=== PATIENT | male | born 1970 | race Caucasian/White ===

== ENCOUNTER 2016-11-01 16:42 | Emergency (ER) | payer MEDICAID ==
--- NOTE | 2016-11-01 17:40 | EDPHY ---
Mental Health General Previous Psychiatric History: schizophrenia, substance abuse Smoking Status: Current every day smoker Time Patient Placed on M1 Hold: 15:00 Course: patient remained stable over course of my shift, patient required additional meds for sedation (meds) Narrative: CHIEF COMPLAINT: M1 hold, suicidal ideations HISTORY OF PRESENT ILLNESS: 45-year-old male presents to the emergency department on an M1 hold for suicidal ideations. Patient reports he is schizophrenic and has been off of his medications for 3 weeks. He reports auditory hallucinations telling him to kill, kill, kill. Patient reports using crystal meth 2-3 days ago, and marijuana. Patient is homeless, his psychiatrist is in [place]. He reports drinking alcohol today. REVIEW OF SYSTEMS: A comprehensive 10 point review of systems is otherwise negative aside from elements mentioned in the history of present illness. Physical Exam Gen: Alert and Oriented, NAD HEENT: PERRL, moist mucous membranes NECK: no meningismus CV: regular rate and regular rhythm PULM: CTAB, no wheezes ABDOMEN: soft, non tender to palpation, BS present BACK: No CVA tenderness NEURO: Neurologically grossly intact EXTREMITIES: normal appearing SKIN: no rash or break in skin on exposed skin PSYCH: Reports suicidal ideations and auditory hallucinations (Suad Devine) I assumed care of this patient from Dr. Styles at 7:00 a.m.. At 2:30 p.m. the patient is undergoing mental health evaluation. He did require Ativan during my shift, for anxiety and agitation and signs of alcohol withdrawal. He has not had any new complaints that he expressed to me. He was slightly tachycardic at the time my exam with a heart rate of around 105. Lungs were clear to auscultation. Abdomen was soft. He was mildly tremulous His care will be transferred to the incoming doctor, Dr. Rex Vela, at change of shift , at 3:00 p.m. on November 02, 2016. Disposition following mental health evaluation. (Sophie Vaughan) Care assumed by me pending evaluation. [address] Vaughan pending evaluation. No issues during my care. 23:30 Care re-assumed by me pendign palcement. [address] Leary pending placement. (Owen Styles) Care assumed at 700 with placement pending. Plan for inpatient placement for schizophrenia and suicidal and homicidal ideation. Signed out to Dr. Brenda Bocanegra at 3:00 p.m. (Yang Leary) Medical Decision Makin-year-old male presents to the emergency department with suicidal ideations. Patient has a blood alcohol level of 196 and a urine tox is positive for methamphetamines. Patient will not be evaluated by EPS for 12 hours after this positive U tox which will be at 4:45 a.m. 0000-report passed on to Dr. Styles at the end of my shift pending sober re- evaluation. (Suad Devine) Patient remained stable on my shift. He is on an M1 hold and mental health as looking for placement Care to Dr. Styles at midnight (Rex Vela) 3pm--I assumed care of this patient at shift change. Tells me that he is very anxious and feels depressed. He denies suicidal ideation. He is currently on an M1 hold for suicidal ideation. Ativan 2 mg orally given for anxiety and alcohol withdrawal. He apparently will be reassessed this afternoon by mental health. 11pm--still awaiting inpatient mental health placement (Brenda Bocanegra) 7:00 a.m.- The patient remained stable throughout my shift. He did receive a dose of Benadryl for help with insomnia. He is currently awaiting mental health evaluation. The case will be signed out to the oncoming provider Dr. Garcia. ( Odessa Doss) The patient was turned over to me at shift change by Dr. Doss pending a repeat psychiatric evaluation. The patient has been in the emergency department for a number of days. The patient was evaluated by the psychiatric team. Patient now contracts for safety and would like to go to a psychiatric respite bed. The case was discussed with Dr. Gopi Harrington from [facility] who recommends vacated the patient's 72 hour mental health hold. This has been done per his order. (Zhang Garcia) - Objective Vital Signs: Initial Vital Signs Temperature (C) 36.5 C 11/01/16 16:52 Heart Rate 78 11/01/16 16:52 Respiratory Rate 15 11/01/16 16:52 Blood Pressure 117/76 11/01/16 16:52 O2 Sat (%) 92 11/01/16 16:52 O2 Delivery Mode Room Air Allergies/Adverse Reactions: No Known Allergies Allergy (Unverified 11/01/16 16:51) Home Medications: Medication Instructions Recorded Risperdal 11/01/16 Xanax 11/01/16 traZODone 11/01/16 Medications Given: Discontinued Medications Acetaminophen (Tylenol) 1,000 mg PO EDNOW ONE Stop: 11/03/16 20:14 Last Admin: 11/03/16 20:21 Dose: Not Given Diphenhydramine HCl (Benadryl) 50 mg PO EDNOW ONE Stop: 11/04/16 00:52 Last Admin: 11/04/16 00:51 Dose: 50 mg Lorazepam (Ativan) 1 mg PO EDNOW ONE Stop: 11/02/16 01:17 Last Admin: 11/02/16 01:17 Dose: 1 mg Lorazepam (Ativan) 1 mg PO EDNOW ONE Stop: 11/02/16 09:40 Last Admin: 11/02/16 09:44 Dose: 1 mg Lorazepam (Ativan) 1 mg PO EDNOW ONE Stop: 11/02/16 12:42 Last Admin: 11/02/16 12:45 Dose: 1 mg Lorazepam (Ativan) 1 mg PO ONCE ONE Stop: 11/02/16 15:23 Last Admin: 11/02/16 15:35 Dose: 1 mg Lorazepam (Ativan) 1 mg PO EDNOW ONE Stop: 11/02/16 19:35 Last Admin: 11/02/16 19:39 Dose: 1 mg Lorazepam (Ativan) 1 mg PO EDNOW ONE Stop: 11/03/16 04:59 Last Admin: 11/03/16 05:00 Dose: 1 mg Lorazepam (Ativan) 1 mg PO EDNOW ONE Stop: 11/03/16 09:15 Last Admin: 11/03/16 09:24 Dose: 1 mg Lorazepam (Ativan) 1 mg PO EDNOW ONE Stop: 11/03/16 12:30 Last Admin: 11/03/16 12:29 Dose: 1 mg Lorazepam (Ativan) 2 mg PO EDNOW ONE Stop: 11/03/16 15:24 Last Admin: 11/03/16 15:33 Dose: 2 mg Lorazepam (Ativan) 1 mg PO EDNOW ONE Stop: 11/03/16 21:03 Last Admin: 11/03/16 21:03 Dose: 1 mg Olanzapine (Zyprexa Zydis) 5 mg PO EDNOW ONE Stop: 11/01/16 22:47 Last Admin: 11/01/16 22:57 Dose: 5 mg Risperidone (Risperdal) 2 mg PO EDNOW ONE Stop: 11/03/16 16:48 Last Admin: 11/03/16 17:25 Dose: 2 mg Trazodone HCl (Trazodone) 450 mg PO EDNOW ONE Stop: 11/03/16 17:31 Last Admin: 11/03/16 17:25 Dose: 450 mg Laboratory Results: Laboratory Results 11/01/16 17:20 11/01/16 17:20 Departure - Departure Disposition: Other Psych, Not [facility] Clinical Impression: Polysubstance abuse Schizophrenia Qualifiers: Schizophrenia type: unspecified Qualifier Code: (F20.9) Schizophrenia, unspecified Condition: Good Referrals: NONE *PRIMARY CARE P,. [Primary Care Provider] - As per Instructions
[2016-11-01 17:44] LABS: % IMMATURE GRANULYOCYTES 0.2 % (0.0-1.1); ABSOLUTE IMMATURE GRANULOCYTES 0.01 10^3/uL (0.00-0.10); ADD DIFF? NO; ADD MORPH? NO; ADD SCAN? NO; ATYPICAL LYMPHOCYTE FLAG 50 (0-99); FRAGMENT RBC FLAG 0 (0-99); HEMATOCRIT 47.9 % (40.0-51.0); HEMOGLOBIN 16.1 g/dL (13.7-17.5); LEFT SHIFT FLG 0 (0-99); LIPEMIA HEMOLYSIS FLAG 80 (0-99); MEAN CELL HEMOGLOBIN 32.3 pg (27.9-34.1); MEAN CELL HEMOGLOBIN CONCENTR. 33.6 g/dL (32.4-36.7); MEAN PLATELET VOLUME 9.1 fL (8.7-11.7); PLATELET CLUMPS FLAG 0 (0-99); PLATELET COUNT 209 10^3/uL (150-400); RED BLOOD CELL COUNT 4.99 10^6/uL (4.40-6.38); RED CELL DISTRIBUTION WIDTH 13.3 % (11.5-15.2)
[2016-11-01 17:45] LABS: ANION GAP 14 mEq/L (8-16); CALCIUM 9.5 mg/dL (8.5-10.4); CARBON DIOXIDE 25 mEq/l (22-31); CHLORIDE 106 mEq/L (97-110); ETHANOL SERUM 196 mg/dL (0-10); GLOMERULAR FILTRATION RATE > 60; GLUCOSE 100 mg/dL (70-100); POTASSIUM 4.2 mEq/L (3.5-5.2); SODIUM 145 mEq/L (134-144)
[2016-11-01] MEDS ORDERED: OLANZapine DISINTEGR 5 MG TAB ONE (22:43)
[2016-11-01] MEDS ORDERED: OLANZapine DISINTEGR 5 MG TAB PO ONE (22:46)
[2016-11-02] MEDS ORDERED: LORazepam 1 MG TAB ONE (01:10)
[2016-11-02] MEDS ORDERED: LORazepam 0.5 MG TAB PO ONE (01:16)
[2016-11-02] MEDS ORDERED: LORazepam 1 MG TAB PO ONE ×4 (09:39→19:34)
[2016-11-03] MEDS ORDERED: LORazepam 1 MG TAB ONE ×3 (04:54→20:12)
[2016-11-03] MEDS ORDERED: LORazepam 0.5 MG TAB PO ONE (04:58)
[2016-11-03] MEDS ORDERED: LORazepam 1 MG TAB PO ONE ×4 (09:14→21:02)
[2016-11-03] MEDS ORDERED: risperiDONE 2 MG TAB PO ONE (16:47)
[2016-11-03] MEDS ORDERED: traZODone 50 MG TAB PO ONE (16:48)
[2016-11-03] MEDS: traZODone 100 MG TAB PO ONE ×2 (17:08→17:25)
[2016-11-03] MEDS ORDERED: ACETAMINOPHEN 500 MG TAB PO ONE (20:13)
[2016-11-04] MEDS ORDERED: diphenhydrAMINE 25 MG CAP PO ONE ×2 (00:49→00:51)
[2016-11-04 08:26] VITALS: RESP 16
[2016-11-04] MEDS ORDERED: risperiDONE 2 MG TAB PO ONE (13:00)
[2016-11-04] MEDS ORDERED: LORazepam 1 MG TAB PO ONE (13:00)
[2016-11-04 13:45] VITALS: BP 105/78; PULSE 89; TEMP 97.7; O2SAT 92
== END 2016-11-04 14:25 ==
DX: F19.10 Other psychoactive substance abuse, uncomplicated (principal); F20.9 Schizophrenia, unspecified; F17.200 Nicotine dependence, unspecified, uncomplicated
CPT/HCPCS: 80305; G0480